=== PATIENT | male | born 1995 | race Caucasian/White ===

== ENCOUNTER 2017-04-16 11:45 | Inpatient (IN) | payer OTHER ==
[~2017-04-16] VITALS: Ht 170.2 cm; Wt 80.8 kg
[2017-04-16 14:20] LABS: MEAN CORPUSCULAR HEMOGLOBIN 31.4 pg (27.0-33.0); MEAN CORPUSCULAR HGB CONC 33.9 g/dl (32.0-36.5); MEAN CORPUSCULAR VOLUME 92.7 fl (80.0-96.0); RED CELL DISTRIBUTION WIDTH 12.5 % (11.5-14.5); WHITE BLOOD COUNT 6.4 K/mm3 (4.0-10.0)
[2017-04-16 14:54] LABS: METHADONE URINE NEGATIVE (NEGATIVE)
[2017-04-16 15:03] LABS: ALBUMIN 4.9 GM/DL (3.2-5.2); ALBUMIN/GLOBULIN RATIO 1.23 (1.00-1.93); ALKALINE PHOSPHATASE 65 U/L (45-117); ALT/SGPT 32 U/L (12-78); ANION GAP 7 MEQ/L (8-16); AST/SGOT 29 U/L (15-37); BILIRUBIN,DIRECT 0.2 MG/DL (0.0-0.2); BILIRUBIN,TOTAL 0.9 MG/DL (0.2-1.0); BLOOD UREA NITROGEN 11 MG/DL (7-18); CALCIUM LEVEL 9.5 MG/DL (8.5-10.1); CARBON DIOXIDE LEVEL 29 MEQ/L (21-32); CHLORIDE LEVEL 105 MEQ/L (98-107); CREATININE FOR GFR 0.92 MG/DL (0.70-1.30); GLUCOSE, FASTING 90 MG/DL (70-105); POTASSIUM SERUM 3.9 MEQ/L (3.5-5.1); SODIUM LEVEL 141 MEQ/L (136-145); TOTAL PROTEIN 8.9 GM/DL (6.4-8.2)
[2017-04-16] MEDS ORDERED: traZODone 50 MG TAB PO PRN (15:45)
[2017-04-16] MEDS ORDERED: OLANZapine 5 MG TAB PO PRN (15:45)
[2017-04-16] MEDS ORDERED: MAALOX 30 ML SUSP *UDC PO PRN (15:45)
[2017-04-16] MEDS ORDERED: MOM 30ML SUSPENSION UDC PO PRN (15:45)
[2017-04-16] MEDS: DIVALPROEX 250 MG TAB PO SCH ×2 (16:00→20:33)
[2017-04-16 17:30] VITALS: BP 132/69
[2017-04-16] MEDS: NICOTINE 21MG/24HR 1 EA TRANSDERMAL TD SCH (20:33)
[2017-04-17 07:31] VITALS: BP 115/60
[2017-04-17] MEDS: busPIRone 10 MG TAB PO SCH ×3 (09:00→20:48)
[2017-04-17] MEDS: NICOTINE 21MG/24HR 1 EA TRANSDERMAL TD SCH (09:14)
[2017-04-17] MEDS: DIVALPROEX 250 MG TAB PO SCH ×3 (09:14→20:48)
[2017-04-17] MEDS: ACETAMINOPHEN TAB 650MG DOSE (2X325MG) PO PRN (10:58)
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
--- NOTE | 2017-04-17 16:28 | HPE ---
DATE OF ADMISSION: 04/16/2017 HISTORY OF PRESENT ILLNESS: Please refer to psychiatric history and evaluation for further details on this admission. This examination and history is intended for medical issues, which may need treatment, followup, or consult on this 21-year-old male. PRIMARY CARE PROVIDER: [facility]. ALLERGIES: No known allergies. 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 EtOH (ethanol): None. Smokes one pack of cigarettes per day. Recreational drug use: None. PAST MEDICAL HISTORY: Bipolar disorder. PAST SURGICAL HISTORY: Appendectomy. MEDICATIONS: None. FAMILY HISTORY: Noncontributory. LABORATORY STUDIES: CBC normal. Electrolytes normal. BUN and creatinine 11 and 0.92. Toxicology screen was negative. A 10-systems review done was negative and unremarkable. PHYSICAL EXAMINATION: A 21-year-old cooperative male in no acute distress. Height 67 inches, weight 78.9 kg, body mass index (BMI) 27.2. Blood pressure 132/69, pulse 54, respirations 16, temperature 97.9. Patient is alert and oriented times three. Pupils equal and reactive to light. Extraocular movements (EOMs) intact. Corneae and sclerae clear. Conjunctivae are normal. No facial asymmetry. Pharynx, tongue, gums pink and moist. Tongue is midline. Neck is supple without lymphadenopathy. No thyromegaly. No goiter. Chest clear to auscultation without wheeze or retraction. Heart is regular without murmur or gallop. Abdomen benign. Bowel sounds positive. Genitourinary/rectal not done. Extremities show equal strength, full range of motion. No cyanosis, clubbing, or edema. Peripheral pulses equal and palpable bilaterally. Skin is warm and dry. IMPRESSION AND PLAN: Psychiatric plan per psychiatry. No acute medical issues.
--- NOTE | 2017-04-17 16:58 | REP ---
CT Head without contrast HISTORY: Concussion COMPARISON: None There is no intraparenchymal hemorrhage, acute infarct, mass or midline shift. The ventricular system is normal in appearance. There is no extra cerebral collection. There is no fracture. The visualized sinuses are clear. IMPRESSION: There is no intracranial lesion. Signed by Willis Bower MD 04/17/2017 04:43 P
[2017-04-17 18:00] VITALS: BP 147/81
[2017-04-17] MEDS: QUEtiapine FUMARATE 100 MG TAB PO SCH (20:48)
[2017-04-17] MEDS: PRAZOSIN 1 MG CAP PO SCH (20:48)
[2017-04-18 06:59] VITALS: BP 117/59
[2017-04-18] MEDS: busPIRone 10 MG TAB PO SCH ×3 (08:26→21:15)
[2017-04-18] MEDS: NICOTINE 21MG/24HR 1 EA TRANSDERMAL TD SCH (08:27)
[2017-04-18] MEDS: ACETAMINOPHEN TAB 650MG DOSE (2X325MG) PO PRN (14:36)
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
[2017-04-18 18:00] VITALS: BP 140/77
[2017-04-18] MEDS ORDERED: DIVALPROEX 500MG *ER* TAB PO SCH (21:00)
[2017-04-18] MEDS: QUEtiapine FUMARATE 100 MG TAB PO SCH (21:15)
[2017-04-18] MEDS: DIVALPROEX 250MG *ER* TAB PO SCH (21:15)
[2017-04-18] MEDS: PRAZOSIN 1 MG CAP PO SCH (21:15)
[2017-04-19 06:17] VITALS: BP 144/74
--- NOTE | 2017-04-19 07:56 | MHIPNPDOC ---
[facility] Progress Note Progress Note DATE OF SERVICE: 04/19/17 HISTORY:day 4 of admission for HI, Bipolar disorder VITAL SIGNS: See below. NEW TEST RESULTS: Head CT. CURRENT MEDICATIONS: See below. PAST SURGICAL HISTORY: Appendectomy. MENTAL STATUS EXAMINATION: General appearance: Patient is a 21-year old male, who is short in stature, light colored hair, fair complexion, fair eye contact, serious. Speech: clear and spontaneous Thought processes:linear, logical Thought content:appropriate Abstract reasoning and computation: good Description of associations: good. Description of abnormal or psychotic thoughts: not currently having suicidal thoughts, no homicidal thoughts, no psychotic symptoms. Judgment: good. Insight: fair. Orientation: oriented to place, time, person and surroundings. Recent and remote memory: intact. Attention span and concentration: varies, some days his concentration is very poor. ADHD by history. Fund of knowledge: Full Mood: "mellow" Affect: flat DIAGNOSES: 1. Bipolar I disorder, current episode depressed, severe, without psychosis 2. PTSD-chronic 3. Impulse control disorder. 4. ADHD by history r/o TBI ASSESSMENT:discussed results of head CT with pt. Recommend MRI as outpatient to continue with resolving issue of headaches. Pt may also need eye exam. This was explained to him and he was told to discuss with PCP after discharge. Pt reports sleeping "like a rock" and no nightmares. Still feels drowsy this a.m. but less so than yesterday. Appears to be adjusting to meds. Hygiene good. eating well. no side effects besides drowsiness reported. Pt observed in bed sleeping during therapeutic programming. He awoke at lunch time and felt much more awake and alert. MANAGEMENT PLAN: continue close observation,Will lower quetiapine to 50 mg to reduce sedation. enc group attendance, continue med adherence, will discuss scheduling MACIE soon. TIME SPENT: 25 minutes. Vital Signs Vital Signs Date Time Temp Pulse Resp B/P (MAP) Pulse Ox O2 Delivery O2 Flow Rate FiO2 04/19/17 06:17 97.4 86 16 144/74 (97) 04/18/17 18:00 Room Air 04/16/17 17:30 99 Current Medications Current Medications Acetaminophen (Tylenol Tab) 650 mg Q6HP PRN PO HEADACHE or DISCOMFORT Last administered on 04/18/17t 14:36; Start 04/16/17 at 15:45; Stop 05/16/17 at 15:44 Al Hydrox/Mg Hydrox/Simethicone (Mylanta) 30 ml Q4HP PRN PO HEARTBURN/ INDIGESTION; Start 04/16/17 at 15:45; Stop 05/16/17 at 15:44 Buspirone HCl (Buspar) 10 mg TID PO Last administered on 04/18/17 21:15; Start 04/17/17 at 09:00; Stop 05/17/17 at 08:59 Divalproex Sodium (Depakote Er) 500 mg QHS PO ; Start 04/18/17 at 21:00; Stop at 21:00; Status DC Divalproex Sodium (Depakote Er) 750 mg QHS PO Last administered on 04/18/17 21 :15; Start 04/18/17 at 21:00; Stop 05/18/17 at 20:59 Divalproex Sodium (Depakote) 250 mg TID PO Last administered on 04/17/17 20:48 ; Start 04/16/17 at 16:00; Stop 04/17/17 at 21:01; Status DC Home Med (Med Rec Complete!) ASDIRECTED XX ; Start 04/16/17 at 15:30; Stop at 15:30; Status DC Magnesium Hydroxide (Milk Of Magnesia) 30 ml DAILYPRN PRN PO CONSTIPATION; Start 04/16/17 at 15:45; Stop 05/16/17 at 15:44 Nicotine (Nicoderm Cq 21mg) 1 patch DAILY TD Last administered on 04/18/17 08: 27; Start 04/16/17 at 09:00; Stop 05/16/17 at 08:59 Olanzapine (ZyPREXA) 5 mg Q4HP PRN PO AGITATION Last administered on 04/18/17 14:36; Start 04/16/17 at 15:45; Stop 05/16/17 at 15:44 Prazosin HCl (Minipress) 1 mg QHS PO Last administered on 04/18/17 21:15; Start 04/17/17 at 21:00; Stop 05/17/17 at 20:59 Quetiapine Fumarate (SEROquel) 100 mg QHS PO Last administered on 04/18/17 21: 15; Start 04/17/17 at 21:00; Stop 05/17/17 at 20:59 Trazodone HCl (Desyrel) 50 mg QHSP PRN PO INSOMNIA; Start 04/16/17 at 15:45; Stop 05/16/17 at 15:44; Status Cancel Allergies Coded Allergies: No Known Allergies (Unverified , 04/16/17) Anni Vera Apr 19, 2017 07:56
[2017-04-19] MEDS: NICOTINE 21MG/24HR 1 EA TRANSDERMAL TD SCH (08:32)
[2017-04-19] MEDS: busPIRone 10 MG TAB PO SCH ×3 (08:32→21:39)
[2017-04-19 18:00] VITALS: BP 125/77
[2017-04-19] MEDS: DIVALPROEX 250MG *ER* TAB PO SCH (21:39)
[2017-04-19] MEDS: QUEtiapine FUMARATE 50 MG TAB PO SCH (21:39)
[2017-04-19] MEDS: PRAZOSIN 1 MG CAP PO SCH (21:40)
[2017-04-20 06:48] VITALS: BP 108/54
[2017-04-20] MEDS: NICOTINE 21MG/24HR 1 EA TRANSDERMAL TD SCH (08:57)
[2017-04-20] MEDS: busPIRone 10 MG TAB PO SCH ×3 (08:57→20:15)
--- NOTE | 2017-04-20 11:47 | MHIPNPDOC ---
[facility] Progress Note Progress Note DATE OF SERVICE: 04/20/17 HISTORY: day 5 of admission for Homicidal thoughts VITAL SIGNS: See below. NEW TEST RESULTS: na will order Depakote level for his weekend. CURRENT MEDICATIONS: See below. MENTAL STATUS EXAMINATION: Patient is a 21-year old male, who is short in stature, light colored hair, fair complexion, fair eye contact, serious. Speech: clear and spontaneous Thought processes:linear, logical Thought content:appropriate Abstract reasoning and computation: good Description of associations: good. Description of abnormal or psychotic thoughts: not currently having suicidal thoughts, no homicidal thoughts, no psychotic symptoms. Judgment: good. Insight: fair. Orientation: oriented to place, time, person and surroundings. Recent and remote memory: intact. Attention span and concentration: varies, some days his concentration is very poor. ADHD by history. Fund of knowledge: Full Mood: "mellow" Affect: flat, will smile on occasion. DIAGNOSES: 1. Bipolar I disorder, current episode depressed, severe, without psychosis 2. PTSD-chronic 3. Impulse control disorder. 4. ADHD by history r/o TBI ASSESSMENT:pt up and working on puzzle after breakfast. Attended some programming and went back to bed for a bit. States sedation is less today with lower dose of Seroquel. Reports he shared with his mother that he is taking Seroquel and she told him she had taken it and had to give herself time to adjust to the medication. pt encouraged to do the same. Hygiene is good. Social interactions are within social norms. No behavior concerns. Pt is requesting to delay MACIE until as long as possible as he does not want to go back to his unit. CDP will talk to him about the process of med boarding out and how long it takes. He keeps saying he [place] and he may think he can chapter out from here. MANAGEMENT PLAN: order Valproic acid level late in day for trough. continue observation, no med changes, Pt will need to have MRI as an outpatient to rule out TBI. TIME SPENT: 25 minutes. Vital Signs Vital Signs Date Time Temp Pulse Resp B/P (MAP) Pulse Ox O2 Delivery O2 Flow Rate FiO2 04/20/17 06:48 97.5 62 16 108/54 (72) Room Air 04/16/17 17:30 99 Current Medications Current Medications Acetaminophen (Tylenol Tab) 650 mg Q6HP PRN PO HEADACHE or DISCOMFORT Last administered on 04/18/17 14:36; Start 04/16/17 at 15:45; Stop 05/16/17 at 15:44 Al Hydrox/Mg Hydrox/Simethicone (Mylanta) 30 ml Q4HP PRN PO HEARTBURN/ INDIGESTION; Start 04/16/17 at 15:45; Stop 05/16/17 at 15:44 Buspirone HCl (Buspar) 10 mg TID PO Last administered on 04/20/17 08:57; Start 04/17/17 at 09:00; Stop 05/17/17 at 08:59 Divalproex Sodium (Depakote Er) 500 mg QHS PO ; Start 04/18/17 at 21:00; Stop at 21:00; Status DC Divalproex Sodium (Depakote Er) 750 mg QHS PO Last administered on 04/19/17 21 :39; Start 04/18/17 at 21:00; Stop 05/18/17 at 20:59 Divalproex Sodium (Depakote) 250 mg TID PO Last administered on 04/17/17 20:48 ; Start 04/16/17 at 16:00; Stop 04/17/17 at 21:01; Status DC Home Med (Med Rec Complete!) ASDIRECTED XX ; Start 04/16/17 at 15:30; Stop at 15:30; Status DC Magnesium Hydroxide (Milk Of Magnesia) 30 ml DAILYPRN PRN PO CONSTIPATION; Start 04/16/17 at 15:45; Stop 05/16/17 at 15:44 Nicotine (Nicoderm Cq 21mg) 1 patch DAILY TD Last administered on 04/20/17 08: 57; Start 04/16/17 at 09:00; Stop 05/16/17 at 08:59 Olanzapine (ZyPREXA) 5 mg Q4HP PRN PO AGITATION Last administered on 04/18/17 14:36; Start 04/16/17 at 15:45; Stop 05/16/17 at 15:44 Prazosin HCl (Minipress) 1 mg QHS PO Last administered on 04/19/17 21:40; Start 04/17/17 at 21:00; Stop 05/17/17 at 20:59 Quetiapine Fumarate (SEROquel) 50 mg QHS PO Last administered on 04/19/17 21: 39; Start 04/19/17 at 21:00; Stop 05/19/17 at 20:59 Quetiapine Fumarate (SEROquel) 100 mg QHS PO Last administered on 04/18/17t 21: 15; Start 04/17/17 at 21:00; Stop 04/19/17 at 13:50; Status DC Trazodone HCl (Desyrel) 50 mg QHSP PRN PO INSOMNIA; Start 04/16/17 at 15:45; Stop 05/16/17 at 15:44; Status Cancel Allergies Coded Allergies: No Known Allergies (Unverified , 04/16/17) Anin Vera Apr 20, 2017 11:47
[2017-04-20 18:00] VITALS: BP 135/63
[2017-04-20] MEDS: QUEtiapine FUMARATE 50 MG TAB PO SCH (20:15)
[2017-04-20] MEDS: DIVALPROEX 250MG *ER* TAB PO SCH (20:15)
[2017-04-20] MEDS: PRAZOSIN 1 MG CAP PO SCH (20:16)
[2017-04-21 06:00] VITALS: BP 137/76
[2017-04-21] MEDS: busPIRone 10 MG TAB PO SCH ×3 (08:28→21:06)
[2017-04-21] MEDS: NICOTINE 21MG/24HR 1 EA TRANSDERMAL TD SCH (08:28)
[2017-04-21] MEDS: ACETAMINOPHEN TAB 650MG DOSE (2X325MG) PO PRN (08:29)
[2017-04-21 18:00] VITALS: BP 141/69
[2017-04-21] MEDS: DIVALPROEX 250MG *ER* TAB PO SCH (21:06)
[2017-04-21] MEDS: QUEtiapine FUMARATE 50 MG TAB PO SCH (21:06)
[2017-04-21] MEDS: PRAZOSIN 1 MG CAP PO SCH (21:06)
[2017-04-22 06:39] VITALS: BP 102/51
[2017-04-22] MEDS: busPIRone 10 MG TAB PO SCH ×3 (08:30→21:01)
[2017-04-22] MEDS: NICOTINE 21MG/24HR 1 EA TRANSDERMAL TD SCH (08:30)
[2017-04-22 18:00] VITALS: BP 127/82
[2017-04-22] MEDS: PRAZOSIN 1 MG CAP PO SCH (21:01)
[2017-04-22] MEDS: QUEtiapine FUMARATE 50 MG TAB PO SCH (21:01)
[2017-04-22] MEDS: DIVALPROEX 250MG *ER* TAB PO SCH (21:01)
[2017-04-23 06:32] VITALS: BP 112/59
[2017-04-23] MEDS: NICOTINE 21MG/24HR 1 EA TRANSDERMAL TD SCH (08:53)
[2017-04-23] MEDS: busPIRone 10 MG TAB PO SCH ×3 (08:54→20:19)
[2017-04-23] MEDS: ACETAMINOPHEN TAB 650MG DOSE (2X325MG) PO PRN ×2 (12:04→20:20)
--- NOTE | 2017-04-23 13:27 | MHIPNPDOC ---
[facility] Progress Note Progress Note DATE OF SERVICE: 04/23/17 HISTORY: day8 of admission for HI. VITAL SIGNS: See below. NEW TEST RESULTS: Valproic acid level:76.8 CURRENT MEDICATIONS: See below. 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 Speech: Is clear. Language skills are intact. Thought processes including: goal directed. Thought content: appropriate. Abstract reasoning, and computation: good. Description of associations: good. Description of abnormal or psychotic thoughts: no psychotic symptoms, denies SI and HI. Judgment: fair Insight: good. Orientation: well oriented in all spheres. Recent and remote memory: intact. Attention span and concentration: good. Fund of knowledge: full. Mood:euthymic. Affect: constricted. DIAGNOSES: 1. Bipolar I disorder, current episode depressed, severe, without psychosis 2. PTSD-chronic 3. Impulse control disorder. 4. ADHD by history r/o TBI ASSESSMENT:pt is focused on his release from service. he has asked screen writer to write a letter in support of this. Will check with CDP a this request has never been made before. Pt is aware that he may be maintained in the for several more months, up to a year, before he can be chaptered out and actually leave his unit. Pt continues to deny side effects to medication. Tolerating them well. Camera Technician was to have increased Seroquel dose to 75 mg and did not do so until this evening. Sleep has been improving as has appetite. Pt is visible in milieu and is attending programming daily. MANAGEMENT PLAN: Seroquel prescribed at 75 mg at . [facility] meeting tomorrow 1p.m. with Discharge on Sunday per pts request. Pt will be monitored by [facility]. We will be recommending a PCP appt for Head MRI to investigate cause of VAZQUEZ/ Migraines. CT w/o Contrast did not disclose any information. Eye exam recommended too. TIME SPENT: 25 minutes. Vital Signs Vital Signs Date Time Temp Pulse Resp B/P (MAP) Pulse Ox O2 Delivery O2 Flow Rate FiO2 04/23/17 06:32 98.6 80 16 112/59 (76) Room Air Current Medications Current Medications Acetaminophen (Tylenol Tab) 650 mg Q6HP PRN PO HEADACHE or DISCOMFORT Last administered on 04/23/17 12:04; Start 04/16/17 at 15:45; Stop 05/16/17 at 15:44 Al Hydrox/Mg Hydrox/Simethicone (Mylanta) 30 ml Q4HP PRN PO HEARTBURN/ INDIGESTION; Start 04/16/17 at 15:45; Stop 05/16/17 at 15:44 Buspirone HCl (Buspar) 10 mg TID PO Last administered on 04/23/17 08:54; Start 04/17/17 at 09:00; Stop 05/17/17 at 08:59 Divalproex Sodium (Depakote Er) 500 mg QHS PO ; Start 04/18/17 at 21:00; Stop at 21:00; Status DC Divalproex Sodium (Depakote Er) 750 mg QHS PO Last administered on 04/22/17 21 :01; Start 04/18/17 at 21:00; Stop 05/18/17 at 20:59; Status Future hold Divalproex Sodium (Depakote) 250 mg TID PO Last administered on 04/17/17 20:48 ; Start 04/16/17 at 16:00; Stop 04/17/17 at 21:01; Status DC Home Med (Med Rec Complete!) ASDIRECTED XX ; Start 04/16/17 at 15:30; Stop at 15:30; Status DC Magnesium Hydroxide (Milk Of Magnesia) 30 ml DAILYPRN PRN PO CONSTIPATION; Start 04/16/17 at 15:45; Stop 05/16/17 at 15:44 Nicotine (Nicoderm Cq 21mg) 1 patch DAILY TD Last administered on 04/23/17 08: 53; Start 04/16/17 at 09:00; Stop 05/16/17 at 08:59 Olanzapine (ZyPREXA) 5 mg Q4HP PRN PO AGITATION Last administered on 04/18/17 14:36; Start 04/16/17 at 15:45; Stop 05/16/17 at 15:44 Prazosin HCl (Minipress) 1 mg QHS PO Last administered on 04/22/17 21:01; Start 04/17/17 at 21:00; Stop 05/17/17 at 20:59 Quetiapine Fumarate (SEROquel) 50 mg QHS PO Last administered on 04/22/17 21: 01; Start 04/19/17 at 21:00; Stop 04/23/17 at 09:05; Status DC Quetiapine Fumarate (SEROquel) 75 mg QHS PO ; Start 04/23/17 at 21:00; Stop at 20:59 Quetiapine Fumarate (SEROquel) 100 mg QHS PO Last administered on 04/18/17 21: 15; Start 04/17/17 at 21:00; Stop 04/19/17 at 13:50; Status DC Trazodone HCl (Desyrel) 50 mg QHSP PRN PO INSOMNIA; Start 04/16/17 at 15:45; Stop 05/16/17 at 15:44; Status Cancel Allergies Coded Allergies: No Known Allergies (Unverified , 04/16/17) Anni Vera Apr 23, 2017 13:27
[2017-04-23 18:00] VITALS: BP 125/58
[2017-04-23] MEDS: DIVALPROEX 250MG *ER* TAB PO SCH (20:17)
[2017-04-23] MEDS: QUEtiapine FUMARATE 25 MG TAB PO SCH (20:19)
[2017-04-23] MEDS: PRAZOSIN 1 MG CAP PO SCH (20:19)
[2017-04-24 06:56] VITALS: BP 126/59
[2017-04-24] MEDS: busPIRone 10 MG TAB PO SCH ×3 (09:02→20:36)
[2017-04-24] MEDS: NICOTINE 21MG/24HR 1 EA TRANSDERMAL TD SCH (09:03)
--- NOTE | 2017-04-24 15:30 | MHIPNPDOC ---
[facility] Progress Note Progress Note DATE OF SERVICE: 04/24/17 HISTORY: day 8 of admission for HI VITAL SIGNS: See below. NEW TEST RESULTS: na CURRENT MEDICATIONS: See below. 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 Speech: Is spontaneous Language skills are good. Thought processes including: goal directed. Thought content: appropriate. Abstract reasoning, and computation: good. Description of associations: good. Description of abnormal or psychotic thoughts: not psychotic, no longer verbalizing thoughts to harm others. Denies SI. Judgment: fair Insight: limited. Orientation: well oriented in all spheres. Recent and remote memory:intact Attention span and concentration: varies. Fund of knowledge: Full Mood: depressed but he says it is improving. Affect: congruent, flat, blunted. DIAGNOSES: 1. Bipolar I disorder, current episode depressed, severe, without psychosis 2. PTSD-chronic 3. Impulse control disorder. 4. ADHD by history r/o TBI ASSESSMENT:pt attended [facility] this afternoon. It was decided he would remain here until Sunday of next week. [facility] is closed Sunday and Sunday so there would not be any professional support available to him should he return to the [facility]. In light of his feelings about his unit it is not recommended he return until further supports are in place. Pt is adhering to medication regime. He appears to be improving. He is sleeping much better than he ever has. Unfortunately for him, service feels as punishing and demeaning as life with grandmother and prompts anxiety and paranoia in him to the extent he has flashbacks of his childhood. He is disappointed by this as he had hoped for a career. Pt has been telling others that his "parents" are coming to visit. He has been in touch with his mother but his father was never in his life. Mom has been coping with bipolar disorder herself. It has been several years since they have seen one another. He bears watching during & after the visit. He may have some unrealistic expectations. He may be terribly disappointed. Hygiene good. Appetite intact. Head aches continue to come and go. MANAGEMENT PLAN: sleep improved at Seroquel 75 mg versus 50 mg. pt not as sedated during the daytime hours either. pt attending programs hit or miss. please encourage him to attend regularly. Not observed engaging with male peers much this week. Lots of other service members here so I find this a little odd. Continue close observation , monitor sleep. Pt needs to follow up with [facility] after discharge if PCP will approve - r/o migraines, cause of headaches, h/o numerous concussions. TIME SPENT: 25 minutes. Vital Signs Vital Signs Date Time Temp Pulse Resp B/P (MAP) Pulse Ox O2 Delivery O2 Flow Rate FiO2 04/24/17 06:56 98.1 68 16 126/59 (81) Room Air Current Medications Current Medications Acetaminophen (Tylenol Tab) 650 mg Q6HP PRN PO HEADACHE or DISCOMFORT Last administered on 04/23/17 20:20; Start 04/16/17 at 15:45; Stop 05/16/17 at 15:44 Al Hydrox/Mg Hydrox/Simethicone (Mylanta) 30 ml Q4HP PRN PO HEARTBURN/ INDIGESTION; Start 04/16/17 at 15:45; Stop 05/16/17 at 15:44 Buspirone HCl (Buspar) 10 mg TID PO Last administered on 04/24/17 09:02; Start 04/17/17 at 09:00; Stop 05/17/17 at 08:59 Divalproex Sodium (Depakote Er) 500 mg QHS PO ; Start 04/18/17 at 21:00; Stop at 21:00; Status DC Divalproex Sodium (Depakote Er) 750 mg QHS PO Last administered on 04/23/17 20 :17; Start 04/18/17 at 21:00; Stop 05/18/17 at 20:59; Status Future hold Divalproex Sodium (Depakote) 250 mg TID PO Last administered on 04/17/17 20:48 ; Start 04/16/17 at 16:00; Stop 04/17/17 at 21:01; Status DC Home Med (Med Rec Complete!) ASDIRECTED XX ; Start 04/16/17 at 15:30; Stop at 15:30; Status DC Magnesium Hydroxide (Milk Of Magnesia) 30 ml DAILYPRN PRN PO CONSTIPATION; Start 04/16/17 at 15:45; Stop 05/16/17 at 15:44 Nicotine (Nicoderm Cq 21mg) 1 patch DAILY TD Last administered on 04/24/17 09: 03; Start 04/16/17 at 09:00; Stop 05/16/17 at 08:59 Olanzapine (ZyPREXA) 5 mg Q4HP PRN PO AGITATION Last administered on 04/18/17 14:36; Start 04/16/17 at 15:45; Stop 05/16/17 at 15:44 Prazosin HCl (Minipress) 1 mg QHS PO Last administered on 04/23/17 20:19; Start 04/17/17 at 21:00; Stop 05/17/17 at 20:59 Quetiapine Fumarate (SEROquel) 50 mg QHS PO Last administered on 04/22/17 21: 01; Start 04/19/17 at 21:00; Stop 04/23/17 at 09:05; Status DC Quetiapine Fumarate (SEROquel) 75 mg QHS PO Last administered on 04/23/17 20: 19; Start 04/23/17 at 21:00; Stop 05/23/17 at 20:59 Quetiapine Fumarate (SEROquel) 100 mg QHS PO Last administered on 04/18/17 21: 15; Start 04/17/17 at 21:00; Stop 04/19/17 at 13:50; Status DC Trazodone HCl (Desyrel) 50 mg QHSP PRN PO INSOMNIA; Start 04/16/17 at 15:45; Stop 05/16/17 at 15:44; Status Cancel Allergies Coded Allergies: No Known Allergies (Unverified , 04/16/17) Anni Vera Apr 24, 2017 15:30
[2017-04-24 18:08] VITALS: BP 124/90
[2017-04-24] MEDS: PRAZOSIN 1 MG CAP PO SCH (20:36)
[2017-04-24] MEDS: DIVALPROEX 250MG *ER* TAB PO SCH (20:36)
[2017-04-24] MEDS: QUEtiapine FUMARATE 25 MG TAB PO SCH (20:36)
[2017-04-24] MEDS: ACETAMINOPHEN TAB 650MG DOSE (2X325MG) PO PRN (20:37)
[2017-04-25 06:34] VITALS: BP 139/63
[2017-04-25] MEDS: busPIRone 10 MG TAB PO SCH ×3 (08:45→22:04)
[2017-04-25] MEDS: NICOTINE 21MG/24HR 1 EA TRANSDERMAL TD SCH (08:45)
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
[2017-04-25 18:00] VITALS: BP 156/83
[2017-04-25] MEDS: PRAZOSIN 1 MG CAP PO SCH (22:03)
[2017-04-25] MEDS: DIVALPROEX 250MG *ER* TAB PO SCH (22:03)
[2017-04-25] MEDS: QUEtiapine FUMARATE 25 MG TAB PO SCH (22:04)
[2017-04-26 06:40] VITALS: BP 135/60
[2017-04-26] MEDS: NICOTINE 21MG/24HR 1 EA TRANSDERMAL TD SCH (08:28)
[2017-04-26] MEDS: busPIRone 10 MG TAB PO SCH ×3 (08:28→21:51)
[2017-04-26 18:00] VITALS: BP 152/69
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
[2017-04-26] MEDS: QUEtiapine FUMARATE 25 MG TAB PO SCH (21:51)
[2017-04-26] MEDS: DIVALPROEX 250MG *ER* TAB PO SCH (21:51)
[2017-04-26] MEDS: PRAZOSIN 1 MG CAP PO SCH (21:52)
[2017-04-27 06:57] VITALS: BP 120/58
[2017-04-27] MEDS: busPIRone 10 MG TAB PO SCH ×3 (08:42→22:14)
[2017-04-27] MEDS: NICOTINE 21MG/24HR 1 EA TRANSDERMAL TD SCH (08:43)
[2017-04-27 18:00] VITALS: BP 138/63
--- NOTE | 2017-04-27 18:58 | MHIPNPDOC ---
[facility] Progress Note Progress Note DATE OF SERVICE: 04/27/17 HISTORY: Patient was seen and evaluated. He reported that he has been feeling better but remains on the edge with repeated parts of being angry and aggressive and damage to property in the unit. He reports that he does not want to get involved in that kind of activity and that's why he remains to himself, even after repeated encouragement to participate in the unit activities. No agitation or aggressive episodes reported. Compliant with the medications and denies side effects. Eating and sleeping fine VITAL SIGNS: See below. CURRENT MEDICATIONS: See below. 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 Speech: Is spontaneous Language skills are good. Thought processes including: goal directed. Thought content: appropriate. Abstract reasoning, and computation: good. Description of associations: good. Description of abnormal or psychotic thoughts: not psychotic, no longer verbalizing thoughts to harm others. Denies SI. Judgment: fair Insight: limited. Orientation: well oriented in all spheres. Recent and remote memory:intact Attention span and concentration: varies. Fund of knowledge: Full Mood: depressed but he says it is improving. Affect: congruent, flat, blunted. DIAGNOSES: 1. Bipolar I disorder, current episode depressed, severe, without psychosis 2. PTSD-chronic 3. Impulse control disorder. 4. ADHD by history r/o TBI ASSESSMENT: Patient improving but remains on the edge MANAGEMENT PLAN: continue observation, no changes to meds. enc pt to attend group & milieu treatment and interact socially. TIME SPENT: 15 minutes. Vital Signs Vital Signs Date Time Temp Pulse Resp B/P (MAP) Pulse Ox O2 Delivery O2 Flow Rate FiO2 04/27/17 06:57 97.7 69 14 120/58 (78) 04/24/17 18:08 Room Air Current Medications Current Medications Acetaminophen (Tylenol Tab) 650 mg Q6HP PRN PO HEADACHE or DISCOMFORT Last administered on 04/24/17t 20:37; Start 04/16/17 at 15:45; Stop 05/16/17 at 15:44 Al Hydrox/Mg Hydrox/Simethicone (Mylanta) 30 ml Q4HP PRN PO HEARTBURN/ INDIGESTION; Start 04/16/17 at 15:45; Stop 05/16/17 at 15:44 Buspirone HCl (Buspar) 10 mg TID PO Last administered on 04/27/17 16:30; Start 04/17/17 at 09:00; Stop 05/17/17 at 08:59 Divalproex Sodium (Depakote Er) 500 mg QHS PO ; Start 04/18/17 at 21:00; Stop at 21:00; Status DC Divalproex Sodium (Depakote Er) 750 mg QHS PO Last administered on 04/26/17 21 :51; Start 04/18/17 at 21:00; Stop 05/18/17 at 20:59; Status Future hold Divalproex Sodium (Depakote) 250 mg TID PO Last administered on 04/17/17 20:48 ; Start 04/16/17 at 16:00; Stop 04/17/17 at 21:01; Status DC Home Med (Med Rec Complete!) ASDIRECTED XX ; Start 04/16/17 at 15:30; Stop at 15:30; Status DC Magnesium Hydroxide (Milk Of Magnesia) 30 ml DAILYPRN PRN PO CONSTIPATION; Start 04/16/17 at 15:45; Stop 05/16/17 at 15:44 Nicotine (Nicoderm Cq 21mg) 1 patch DAILY TD Last administered on 04/27/17 08: 43; Start 04/16/17 at 09:00; Stop 05/16/17 at 08:59 Olanzapine (ZyPREXA) 5 mg Q4HP PRN PO AGITATION Last administered on 04/18/17 14:36; Start 04/16/17 at 15:45; Stop 05/16/17 at 15:44 Prazosin HCl (Minipress) 1 mg QHS PO Last administered on 04/26/17 21:52; Start 04/17/17 at 21:00; Stop 05/17/17 at 20:59 Quetiapine Fumarate (SEROquel) 50 mg QHS PO Last administered on 04/22/17 21: 01; Start 04/19/17 at 21:00; Stop 04/23/17 at 09:05; Status DC Quetiapine Fumarate (SEROquel) 75 mg QHS PO Last administered on 04/26/17 21: 51; Start 04/23/17 at 21:00; Stop 05/23/17 at 20:59 Quetiapine Fumarate (SEROquel) 100 mg QHS PO Last administered on 04/18/17t 21: 15; Start 04/17/17 at 21:00; Stop 04/19/17 at 13:50; Status DC Trazodone HCl (Desyrel) 50 mg QHSP PRN PO INSOMNIA; Start 04/16/17 at 15:45; Stop 05/16/17 at 15:44; Status Cancel Allergies Coded Allergies: No Known Allergies (Unverified , 04/16/17) VAN NORIEGA MD Apr 27, 2017 18:58
[2017-04-27] MEDS: DIVALPROEX 250MG *ER* TAB PO SCH (22:14)
[2017-04-27] MEDS: QUEtiapine FUMARATE 25 MG TAB PO SCH (22:14)
[2017-04-27] MEDS: PRAZOSIN 1 MG CAP PO SCH (22:14)
[2017-04-28 06:58] VITALS: BP 142/65
[2017-04-28] MEDS: busPIRone 10 MG TAB PO SCH ×3 (08:29→21:32)
[2017-04-28] MEDS: NICOTINE 21MG/24HR 1 EA TRANSDERMAL TD SCH (08:30)
[2017-04-28 18:00] VITALS: BP 132/86
[2017-04-28] MEDS: DIVALPROEX 250MG *ER* TAB PO SCH (21:32)
[2017-04-28] MEDS: QUEtiapine FUMARATE 25 MG TAB PO SCH (21:32)
[2017-04-28] MEDS: PRAZOSIN 1 MG CAP PO SCH (21:32)
[2017-04-28] MEDS: ACETAMINOPHEN TAB 650MG DOSE (2X325MG) PO PRN (21:33)
[2017-04-29 06:27] VITALS: BP 130/58
[2017-04-29] MEDS: NICOTINE 21MG/24HR 1 EA TRANSDERMAL TD SCH (07:53)
[2017-04-29] MEDS: busPIRone 10 MG TAB PO SCH ×3 (07:53→22:33)
[2017-04-29 18:00] VITALS: BP 136/70
[2017-04-29] MEDS: QUEtiapine FUMARATE 25 MG TAB PO SCH (22:34)
[2017-04-29] MEDS: DIVALPROEX 250MG *ER* TAB PO SCH (22:34)
[2017-04-29] MEDS: PRAZOSIN 1 MG CAP PO SCH (22:34)
[2017-04-30 06:00] VITALS: BP 107/53
[2017-04-30] MEDS: NICOTINE 21MG/24HR 1 EA TRANSDERMAL TD SCH (08:20)
[2017-04-30] MEDS: busPIRone 10 MG TAB PO SCH ×3 (08:20→21:54)
[2017-04-30 18:00] VITALS: BP 151/76
[2017-04-30] MEDS: DIVALPROEX 250MG *ER* TAB PO SCH (21:53)
[2017-04-30 21:54] VITALS: BP 142/75
[2017-04-30] MEDS: PRAZOSIN 1 MG CAP PO SCH (21:54)
[2017-04-30] MEDS: QUEtiapine FUMARATE 25 MG TAB PO SCH (21:54)
[2017-05-01 06:27] VITALS: BP 122/56
[2017-05-01] MEDS ORDERED: MINI1CAP PO (09:01)
[2017-05-01] MEDS ORDERED: DEPA250T2 PO (09:01)
[2017-05-01] MEDS ORDERED: BUSP10TA PO (09:01)
[2017-05-01] MEDS ORDERED: QUET1TAB7 PO (09:01)
[2017-05-01] MEDS: busPIRone 10 MG TAB PO SCH (09:10)
[2017-05-01] MEDS: NICOTINE 21MG/24HR 1 EA TRANSDERMAL TD SCH (09:11)
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
== END 2017-05-01 13:00 | disposition home or self-care (01) | DRG 885 ==
LOC: M ED 11:45 → M ED INP 15:45 → M PSY 17:17
PROVIDERS: ADMIT Psychiatry & Neurology Psychiatry; ATTEND Psychiatry & Neurology Psychiatry
DX: F31.4 Bipolar disorder, current episode depressed, severe, without psychotic features (principal); F43.12 Post-traumatic stress disorder, chronic; F17.210 Nicotine dependence, cigarettes, uncomplicated; F63.9 Impulse disorder, unspecified; Z81.3 Family history of other psychoactive substance abuse and dependence; Z81.8 Family history of other mental and behavioral disorders; Z62.810 Personal history of physical and sexual abuse in childhood

== ENCOUNTER 2017-05-03 13:22 | Inpatient (IN) | payer OTHER ==
[~2017-05-03] VITALS: Ht 170.2 cm; Wt 81.8 kg
[~2017-05-03 13:22] MED LIST: BUSP10TA PO; DEPA250T2 PO; MINI1CAP PO; QUET1TAB7 PO
[2017-05-03 14:49] LABS: MEAN CORPUSCULAR HEMOGLOBIN 31.2 pg (27.0-33.0); MEAN CORPUSCULAR HGB CONC 33.1 g/dl (32.0-36.5); RED CELL DISTRIBUTION WIDTH 12.3 % (11.5-14.5); WHITE BLOOD COUNT 6.2 K/mm3 (4.0-10.0)
[2017-05-03 15:20] LABS: ALBUMIN 4.5 GM/DL (3.2-5.2); ALBUMIN/GLOBULIN RATIO 1.13 (1.00-1.93); ALKALINE PHOSPHATASE 75 U/L (45-117); ALT/SGPT 35 U/L (12-78); ANION GAP 8 MEQ/L (8-16); AST/SGOT 29 U/L (15-37); BILIRUBIN,DIRECT 0.1 MG/DL (0.0-0.2); BILIRUBIN,TOTAL 0.4 MG/DL (0.2-1.0); BLOOD UREA NITROGEN 13 MG/DL (7-18); CARBON DIOXIDE LEVEL 29 MEQ/L (21-32); CHLORIDE LEVEL 105 MEQ/L (98-107); CREATININE FOR GFR 0.91 MG/DL (0.70-1.30); GLUCOSE, FASTING 91 MG/DL (70-105); POTASSIUM SERUM 4.1 MEQ/L (3.5-5.1); SODIUM LEVEL 142 MEQ/L (136-145); TOTAL PROTEIN 8.5 GM/DL (6.4-8.2)
[2017-05-03] MEDS ORDERED: MOM 30ML SUSPENSION UDC PO PRN (15:30)
[2017-05-03] MEDS ORDERED: MAALOX 30 ML SUSP *UDC PO PRN (15:30)
[2017-05-03 15:34] LABS: METHADONE URINE NEGATIVE (NEGATIVE)
[2017-05-03] MEDS ORDERED: BUSP10TA PO (16:25)
[2017-05-03] MEDS ORDERED: TYLE325T5 PO (16:25)
[2017-05-03] MEDS ORDERED: DIVA250T7 PO (16:25)
[2017-05-03] MEDS ORDERED: PRAZ1CAP PO (16:25)
[2017-05-03] MEDS ORDERED: SERO1TAB3 PO (16:25)
[2017-05-03 16:53] VITALS: BP 138/80
[2017-05-03] MEDS: NICOTINE 21MG/24HR 1 EA TRANSDERMAL TD SCH (21:00)
[2017-05-03] MEDS: QUEtiapine FUMARATE 25 MG TAB PO SCH (21:39)
[2017-05-03] MEDS: busPIRone 10 MG TAB PO SCH (21:39)
[2017-05-03] MEDS: PRAZOSIN 1 MG CAP PO SCH (21:39)
[2017-05-03] MEDS: DIVALPROEX 250MG *ER* TAB PO SCH (21:40)
[2017-05-04 06:40] VITALS: BP 124/58
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
[2017-05-04] MEDS: busPIRone 10 MG TAB PO SCH ×3 (09:12→22:33)
--- NOTE | 2017-05-04 09:31 | HPEPDOC ---
Medical History and Physical Date of Admission May 03, 2017 at 15:24 History and Physical PCP: [facility] ATTENDING: Dr. Bradford Viera HPI: 21 yo M admitted to [facility] for bipolar disorder, being medically examined today. No acute medical complaints today. Patient states he takes Depakote for mood. Denies any fevers, chills, weakness, fatigue, VAZQUEZ, CP, SOB, cough, palpitations, abdominal pain, N/V/D or changes in bowel or bladder habits. 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 ROS: As noted in HPI, otherwise 11pt ROS of systems reviewed and unremarkable. PE: GEN: 21yoM, appears stated age. Well-nourished, well developed. No acute distress. Alert and oriented x 3. Reluctant to provide history, avoids eye contact, flat affect. HEENT: Normocephalic, atraumatic. Pupils are equal, round, and reactive to light. Extraocular movements are intact. No nystagmus appreciated. Sclera are nonicteric. Conjunctiva without injection. Nose midline. Nasal turbinates without bogginess. EACs both patent BL. TMs both visualized and nugent with good cone of light, no bulging or erythema. No facial asymmetry. Moist mucous membranes. Dentition fair. Pharynx pink and moist, no cobblestoning. Neck supple , trachea midline. No lymphadenopathy or thyromegaly appreciated. CHEST: Regular rate and rhythm, +S1, +S2 LUNGS: Clear to auscultation bilaterally. No wheezes, rales, or rhonchi. Breathing appears symmetric and easy. Patient is speaking in full sentences. No accessory muscle use. ABD: Round, soft, non-tender, non-distended. +Bowel sounds throughout. No rebound or guarding. No costovertebral angle tenderness. EXT: Pulses 2+ bilaterally dorsalis pedis and radial. No lower extremity edema appreciated. SKIN: [place], dry, warm. Capillary refill <2sec. No rashes. NEURO: Alert and oriented x 3. Cranial nerves III-XII are intact. No focal deficits appreciated. EKG: Pending. CT had 04/17/17 There is no intracranial lesion. A&P: 21 yo M admitted to [facility] for bipolar disorder 1. Psych. Plan per Psychiatry. Obtain baseline EKG to assure the safety of psychiatric medications as they can prolong the QT interval. 2. Nicotine dependence. Patch available. 3. 4. Follow up with PCP on discharge. 5. Staff member Say present throughout exam. Vital Signs Vital Signs Date Time Temp Pulse Resp B/P (MAP) Pulse Ox O2 Delivery O2 Flow Rate FiO2 05/04/17 06:40 98.5 55 16 124/58 (80) 05/03/17 16:53 99 Room Air Laboratory Data Labs 24H Laboratory Tests 2 05/03/17 14:31: Anion Gap 8, Calcium Level 9.0, Aspartate Amino Transf (AST/SGOT) 29, Alanine Aminotransferase (ALT/SGPT) 35, Alkaline Phosphatase 75, Total Bilirubin 0.4, Direct Bilirubin 0.1, Total Protein 8.5H, Albumin 4.5, Albumin/Globulin Ratio 1.13, Thyroid Stimulating Hormone (TSH) 1.360, Salicylates Level < 1.7L, Urine Amphetamines Screen NEGATIVE, Urine Benzodiazepines Screen NEGATIVE, Urine Opiates Screen NEGATIVE, Urine Methadone Screen NEGATIVE, Acetaminophen Level 8.3L, Urine Barbiturates Screen NEGATIVE, Valproic Acid (Depakene) Level 44.2L, Urine Phencyclidine Screen NEGATIVE, Urine Cocaine Metabolite Screen NEGATIVE, Urine Cannabinoids Screen NEGATIVE, Ethyl Alcohol Level < 0.003 CBC/BMP Laboratory Tests 05/03/17 14:31 Red Blood Count 5.15, Mean Corpuscular Volume 94.0, Mean Corpuscular Hemoglobin 31.2, Mean Corpuscular Hemoglobin Concent 33.1, Red Cell Distribution Width 12.3 Home Medications Scheduled Buspirone HCl (Buspirone HCl) 10 Mg Tab, 10 MG PO TID Divalproex Sodium (Divalproex Sodium ER) 250 Mg Tab, 750 MG PO QHS Prazosin Hcl (Prazosin HCl) 1 Mg Cap, 1 MG PO QHS Quetiapine Fumerate (Seroquel) 25 Mg Tab, 75 MG PO QHS Scheduled PRN Acetaminophen (Tylenol) 325 Mg Tab, 650 MG PO QID PRN for PAIN Allergies Coded Allergies: No Known Allergies (Unverified , 04/16/17) Merle Matta May 04, 2017 09:31
--- NOTE | 2017-05-04 16:55 | ECGEPIP ---
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
[2017-05-04 18:00] VITALS: BP 130/64
[2017-05-04] MEDS: PRAZOSIN 1 MG CAP PO SCH (22:33)
[2017-05-04] MEDS: QUEtiapine FUMARATE 25 MG TAB PO SCH (22:33)
[2017-05-04] MEDS: DIVALPROEX 250MG *ER* TAB PO SCH (22:34)
[2017-05-04] MEDS: NICOTINE 21MG/24HR 1 EA TRANSDERMAL TD SCH (22:34)
[2017-05-05 06:35] VITALS: BP 129/62
[2017-05-05] MEDS: busPIRone 10 MG TAB PO SCH ×3 (08:29→23:13)
[2017-05-05] MEDS: ACETAMINOPHEN TAB 650MG DOSE (2X325MG) PO PRN (12:32)
[2017-05-05] MEDS ORDERED: OLANZapine 5 MG TAB PO PRN (13:30)
[2017-05-05 18:00] VITALS: BP 124/58
--- NOTE | 2017-05-05 21:30 | IPN ---
DATE: 05/05/2017 SUBJECTIVE: The patient states, "I'm feeling really anxious." He denies any new stressors. He states that he still did not sleep well because he was having nightmares last night. MENTAL STATUS EXAMINATION: He is alert and oriented times three. Eye contact fair. Psychomotor activity is decreased. Verbally spontaneous. There is no formal thought disorder noted. The patient's mood is anxious. Affect is restricted but appropriate to his mood. He is not psychotic, suicidal or homicidal. Concentration is fair. Memory intact. Insight and judgment fair. DIAGNOSIS: Bipolar disorder type 1, recurrent, depressed without psychotic features. TREATMENT PLAN: At this point, we will monitor the patient for continued stabilization of his mood. We will give him Zyprexa 10 mg as needed to see if it helps with his anxiety. GILD
[2017-05-05] MEDS: QUEtiapine FUMARATE 25 MG TAB PO SCH (23:13)
[2017-05-05] MEDS: DIVALPROEX 250MG *ER* TAB PO SCH (23:13)
[2017-05-05] MEDS: PRAZOSIN 1 MG CAP PO SCH (23:14)
[2017-05-05] MEDS: NICOTINE 21MG/24HR 1 EA TRANSDERMAL TD SCH (23:14)
[2017-05-06 06:38] VITALS: BP 134/50
[2017-05-06] MEDS: busPIRone 10 MG TAB PO SCH ×3 (08:31→21:38)
[2017-05-06] MEDS: ACETAMINOPHEN TAB 650MG DOSE (2X325MG) PO PRN (13:11)
--- NOTE | 2017-05-06 17:30 | MHIPN ---
DATE: 05/06/2017 The patient today states, "I'm doing good." By this, he means that his anxiety is better. However, he tells me that he is still depressed. His mood is 6/10 where the closer to 10/10 is the most depressed. He is still having some hopelessness. MENTAL STATUS EXAMINATION: This patient is alert and oriented times three. Eye contact is fair. Psychomotor activity is decreased. He is verbally spontaneous. There is no formal thought disorder noted. Mood is depressed. Affect, full range and appropriate. He is not psychotic, suicidal or homicidal. Concentration is fair. Memory intact. Insight and judgment is poor. DIAGNOSIS: Bipolar disorder, type 1, recurrent, depressed without psychotic symptoms. TREATMENT PLAN: At this point, we will continue to monitor the patient for continued elevation and stabilization of his mood and for continued resolution of suicidal ideations. We will continue to titrate his medications as indicated.
[2017-05-06 18:05] VITALS: BP 123/60
[2017-05-06] MEDS: QUEtiapine FUMARATE 25 MG TAB PO SCH (21:38)
[2017-05-06] MEDS: NICOTINE 21MG/24HR 1 EA TRANSDERMAL TD SCH (21:38)
[2017-05-06] MEDS: DIVALPROEX 250MG *ER* TAB PO SCH (21:39)
[2017-05-06] MEDS: PRAZOSIN 1 MG CAP PO SCH (21:39)
[2017-05-07 06:44] VITALS: BP 122/59
[2017-05-07] MEDS: busPIRone 10 MG TAB PO SCH ×3 (08:29→21:39)
--- NOTE | 2017-05-07 12:04 | MHIPNPDOC ---
[facility] Progress Note Progress Note DATE OF SERVICE: 05/07/17 HISTORY: day 5 of admission for SI with HI. VITAL SIGNS: See below. NEW TEST RESULTS: na CURRENT MEDICATIONS: See below. MENTAL STATUS EXAMINATION: General appearance: Patient is a 21-year old male, who is short, fair haired, light skin and eyes, wearing hospital attire, poor eye contact. Speech: spontaneous Thought processes: goal directed Thought content: appropriate. Abstract reasoning and computation: good. Description of associations: good. Description of abnormal or psychotic thoughts: pt is homicidal towards authority , suicidal to prevent himself from harming anyone. Denies auditory disturbances. Judgment: good. Insight: fair Orientation: well oriented in all spheres. Recent and remote memory: intact Attention span and concentration: good. Fund of knowledge: full Mood: depressed Affect: congruent DIAGNOSES: 1. Bipolar I disorder, recurrent, current episode depressed, without psychotic features 2. PTSD-chronic ASSESSMENT: we have been informed the will send pt for long-term care in [place] for bipolar disorder. pt was informed of this today. We will await word of the transfer. In the mean time pt instructed to continue group therapy and to be out of room as much as possible. He is currently in bed reading during group time. Prazosin increased over the weekend for nightmares. MANAGEMENT PLAN: continue close obs, continue depakote, prazosin at 2 mg. pt c/ o low mood. will initiate tx with citalopram 10 mg. risks and benefits discussed with the patient. TIME SPENT: 15 minutes. Vital Signs Vital Signs Date Time Temp Pulse Resp B/P (MAP) Pulse Ox O2 Delivery O2 Flow Rate FiO2 05/07/17 06:44 97.3 65 16 122/59 (80) Room Air 05/03/17 16:53 99 Laboratory Data 24H Labs Laboratory Tests 2 05/07/17 10:56: Current Medications Current Medications Acetaminophen (Tylenol Tab) 650 mg Q6HP PRN PO HEADACHE or DISCOMFORT Last administered on 05/06/17t 13:11; Start 05/03/17 at 15:30; Stop 06/02/17 at 15:29 Al Hydrox/Mg Hydrox/Simethicone (Mylanta) 30 ml Q4HP PRN PO HEARTBURN/ INDIGESTION; Start 05/03/17 at 15:30; Stop 06/02/17 at 15:29 Buspirone HCl (Buspar) 10 mg TID PO Last administered on 05/07/17 08:29; Start 05/03/17 at 21:00; Stop 06/02/17 at 20:59 Divalproex Sodium (Depakote Er) 750 mg QHS PO Last administered on 05/06/17 21 :39; Start 05/03/17 at 21:00; Stop 06/02/17 at 20:59 Home Med (Med Rec Complete!) ASDIRECTED XX ; Start 05/03/17 at 16:30; Stop at 16:30; Status DC Magnesium Hydroxide (Milk Of Magnesia) 30 ml DAILYPRN PRN PO CONSTIPATION; Start 05/03/17 at 15:30; Stop 06/02/17 at 15:29 Nicotine (Nicoderm Cq 21mg) 1 patch QHS TD Last administered on 05/06/17 21:38 ; Start 05/03/17 at 21:00; Stop 06/02/17 at 20:59 Olanzapine (ZyPREXA) 5 mg Q4HP PRN PO ANXIETY/AGITATION Last administered on 13:29; Start 05/05/17 at 13:30; Stop 06/04/17 at 13:29 Prazosin HCl (Minipress) 1 mg QHS PO Last administered on 05/05/17 23:14; Start 05/03/17 at 21:00; Stop 05/06/17 at 13:31; Status DC Prazosin HCl (Minipress) 2 mg QHS PO Last administered on 05/06/17 21:39; Start 05/06/17 at 21:00; Stop 06/05/17 at 20:59 Quetiapine Fumarate (SEROquel) 75 mg QHS PO Last administered on 05/06/17 21: 38; Start 05/03/17 at 21:00; Stop 06/02/17 at 20:59 Allergies Coded Allergies: No Known Allergies (Unverified , 04/16/17) Anni Vera May 07, 2017 12:04
[2017-05-07] MEDS: CitaloPRAM (CeleXA) 10 MG TABLET PO SCH (12:17)
[2017-05-07 18:00] VITALS: BP 142/65
[2017-05-07] MEDS: QUEtiapine FUMARATE 25 MG TAB PO SCH (21:39)
[2017-05-07] MEDS: PRAZOSIN 1 MG CAP PO SCH (21:39)
[2017-05-07] MEDS: NICOTINE 21MG/24HR 1 EA TRANSDERMAL TD SCH (21:40)
[2017-05-07] MEDS: DIVALPROEX 250MG *ER* TAB PO SCH (21:40)
[2017-05-08 06:33] VITALS: BP 135/60
[2017-05-08] MEDS: busPIRone 10 MG TAB PO SCH ×3 (08:52→21:51)
[2017-05-08] MEDS: CitaloPRAM (CeleXA) 10 MG TABLET PO SCH (08:52)
--- NOTE | 2017-05-08 10:49 | MHIPNPDOC ---
[facility] Progress Note Progress Note DATE OF SERVICE: 05/08/17 HISTORY: day 6 of admission for SI/HI. VITAL SIGNS: See below. NEW TEST RESULTS: depakote level:0.81, Plts low at 149, will repeat. CURRENT MEDICATIONS: See below. MENTAL STATUS EXAMINATION: General appearance: Patient is a 21-year old male, who is short, fair haired, light skin and eyes, wearing hospital attire, poor eye contact. Speech: spontaneous Thought processes: goal directed Thought content: appropriate. Abstract reasoning and computation: good. Description of associations: good. Description of abnormal or psychotic thoughts: pt is homicidal towards authority , suicidal to prevent himself from harming anyone. Denies auditory disturbances. Judgment: good. Insight: fair Orientation: well oriented in all spheres. Recent and remote memory: intact Attention span and concentration: good. 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 Bipolar I disorder, recurrent, current episode depressed, without psychotic features 2. PTSD-chronic ASSESSMENT:pt participated in treatment planning this morning, met with team to review goals and objectives. the staff will be encouraging him more regularly to attend programming as he has done very little since admitted. He prefers to lay in bed and read. This is not treatment so he needs to be encouraged routinely to socialize and be present where his peers are present. Pt took first dose of Celexa this morning. He slept well last night and denied nightmares. Stated, "it took a minute" to fall asleep so if this becomes routine quetiapine may need to be increased to 100 mg. Pt eats at mealtime and takes care of hygiene well. He speaks with his mother regularly on the phone and states she has been supportive "so far". Given his background his doubts are well founded. MANAGEMENT PLAN: pt is awaiting nursing home treatment at [facility]. We are awaiting word from [employer] that his transfer arrangements have been made. Once we hear, he will be escorted by personal to the treatment center. He is to continue meds here as ordered and we will continue to monitor his safety, sleep, VS and psychiatric needs. Repeat Plt level to be ordered today. [email or web address] has informed us that they will attend MACIE meeting tomorrow at noon. they will take pt to [email or web address] so he can pack. they will return him to unit. He requires a 4 hour pass. He is to be escorted on 05/10/17 at appro 0400 hrs to the airport to begin his treatment in [place]. TIME SPENT: 25 minutes. Vital Signs Vital Signs Date Time Temp Pulse Resp B/P (MAP) Pulse Ox O2 Delivery O2 Flow Rate FiO2 05/08/17 06:33 97.8 52 16 135/60 (85) Room Air 05/03/17 16:53 99 Laboratory Data 24H Labs Laboratory Tests 2 05/07/17 10:56: Valproic Acid (Depakene) Level 81.7 Current Medications Current Medications Acetaminophen (Tylenol Tab) 650 mg Q6HP PRN PO HEADACHE or DISCOMFORT Last administered on 05/06/17 13:11; Start 05/03/17 at 15:30; Stop 06/02/17 at 15:29 Al Hydrox/Mg Hydrox/Simethicone (Mylanta) 30 ml Q4HP PRN PO HEARTBURN/ INDIGESTION; Start 05/03/17 at 15:30; Stop 06/02/17 at 15:29 Buspirone HCl (Buspar) 10 mg TID PO Last administered on 05/08/17 08:52; Start 05/03/17 at 21:00; Stop 06/02/17 at 20:59 Citalopram Hydrobromide (CeleXA) 10 mg DAILY PO Last administered on 05/08/17 08:52; Start 05/07/17 at 09:00; Stop 06/06/17 at 08:59 Divalproex Sodium (Depakote Er) 750 mg QHS PO Last administered on 05/07/17 21 :40; Start 05/03/17 at 21:00; Stop 06/02/17 at 20:59 Home Med (Med Rec Complete!) ASDIRECTED XX ; Start 05/03/17 at 16:30; Stop at 16:30; Status DC Magnesium Hydroxide (Milk Of Magnesia) 30 ml DAILYPRN PRN PO CONSTIPATION; Start 05/03/17 at 15:30; Stop 06/02/17 at 15:29 Nicotine (Nicoderm Cq 21mg) 1 patch QHS TD Last administered on 05/07/17 21:40 ; Start 05/03/17 at 21:00; Stop 06/02/17 at 20:59 Olanzapine (ZyPREXA) 5 mg Q4HP PRN PO ANXIETY/AGITATION Last administered on 13:29; Start 05/05/17 at 13:30; Stop 06/04/17 at 13:29 Prazosin HCl (Minipress) 1 mg QHS PO Last administered on 05/05/17 23:14; Start 05/03/17 at 21:00; Stop 05/06/17 at 13:31; Status DC Prazosin HCl (Minipress) 2 mg QHS PO Last administered on 05/07/17 21:39; Start 05/06/17 at 21:00; Stop 06/05/17 at 20:59 Quetiapine Fumarate (SEROquel) 75 mg QHS PO Last administered on 05/07/17 21: 39; Start 05/03/17 at 21:00; Stop 06/02/17 at 20:59 Allergies Coded Allergies: No Known Allergies (Unverified , 04/16/17) Anni Vera May 08, 2017 10:49
[2017-05-08 18:00] VITALS: BP 137/86
[2017-05-08] MEDS: DIVALPROEX 250MG *ER* TAB PO SCH (21:52)
[2017-05-08] MEDS: PRAZOSIN 1 MG CAP PO SCH (21:52)
[2017-05-08] MEDS: QUEtiapine FUMARATE 25 MG TAB PO SCH (21:52)
[2017-05-08] MEDS: NICOTINE 21MG/24HR 1 EA TRANSDERMAL TD SCH (21:53)
[2017-05-09 06:28] VITALS: BP 127/65
[2017-05-09] MEDS: CitaloPRAM (CeleXA) 10 MG TABLET PO SCH (08:07)
[2017-05-09] MEDS: busPIRone 10 MG TAB PO SCH ×3 (08:07→21:04)
--- NOTE | 2017-05-09 14:37 | MHIPNPDOC ---
[facility] Progress Note Progress Note DATE OF SERVICE: 05/09/17 HISTORY: day 7 of admission for SI related to HI VITAL SIGNS: See below. NEW TEST RESULTS: Platelet level has dropped lower to 148, likely related to depakote. Would not raise depakote as an outpatient until or unless this resolves. CURRENT MEDICATIONS: See below. MENTAL STATUS EXAMINATION: ASSESSMENT: pt up for groups after prompting. attended group and MACIE meeting at 12:45. Left for pass with escort to pack for transfer to long-term care facility in [place]. 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 It is apparent that his personality and the patients are not a good mix. 1st Sgts. body language and tone/volume of voice could be interpreted as aggressive by Will. He may do better if he were assigned elsewhere. Will is hopeful for a chance to start over with the after his tx at [facility]. He wants to do it for his uncle. His uncle has been encouraging Will to finish up 2 years with the [employer]. In the right environment he may be able to do so. Decorating Equipment Setter spoke with Will about having a conversation about this with his Capt when he returns from [facility]. 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 Capt indicated that the [employer] does plan to pursue a Behavioral Health med board. Pt may have a future in [place] with his uncle. He hopes to visit his estranged Mother in [place] as well. MANAGEMENT PLAN: continue meds and close observation. pt is due back from pass by 6 p.m. due to late departure (no clothes, no conversion to Vol status as ordered 05/08 to be done today). TIME SPENT: 25 minutes. Vital Signs Vital Signs Date Time Temp Pulse Resp B/P (MAP) Pulse Ox O2 Delivery O2 Flow Rate FiO2 05/09/17 06:28 97.1 74 16 127/65 (85) Room Air 05/03/17 16:53 99 Current Medications Current Medications Acetaminophen (Tylenol Tab) 650 mg Q6HP PRN PO HEADACHE or DISCOMFORT Last administered on 05/06/17t 13:11; Start 05/03/17 at 15:30; Stop 06/02/17 at 15:29 Al Hydrox/Mg Hydrox/Simethicone (Mylanta) 30 ml Q4HP PRN PO HEARTBURN/ INDIGESTION; Start 05/03/17 at 15:30; Stop 06/02/17 at 15:29 Buspirone HCl (Buspar) 10 mg TID PO Last administered on 05/09/17 08:07; Start 05/03/17 at 21:00; Stop 06/02/17 at 20:59 Citalopram Hydrobromide (CeleXA) 10 mg DAILY PO Last administered on 05/09/17 08:07; Start 05/07/17 at 09:00; Stop 06/06/17 at 08:59 Divalproex Sodium (Depakote Er) 750 mg QHS PO Last administered on 05/08/17 21 :52; Start 05/03/17 at 21:00; Stop 06/02/17 at 20:59 Home Med (Med Rec Complete!) ASDIRECTED XX ; Start 05/03/17 at 16:30; Stop at 16:30; Status DC Magnesium Hydroxide (Milk Of Magnesia) 30 ml DAILYPRN PRN PO CONSTIPATION; Start 05/03/17 at 15:30; Stop 06/02/17 at 15:29 Nicotine (Nicoderm Cq 21mg) 1 patch QHS TD Last administered on 05/08/17 21:53 ; Start 05/03/17 at 21:00; Stop 06/02/17 at 20:59 Olanzapine (ZyPREXA) 5 mg Q4HP PRN PO ANXIETY/AGITATION Last administered on 13:29; Start 05/05/17 at 13:30; Stop 06/04/17 at 13:29 Prazosin HCl (Minipress) 1 mg QHS PO Last administered on 05/05/17 23:14; Start 05/03/17 at 21:00; Stop 05/06/17 at 13:31; Status DC Prazosin HCl (Minipress) 2 mg QHS PO Last administered on 05/08/17 21:52; Start 05/06/17 at 21:00; Stop 06/05/17 at 20:59 Quetiapine Fumarate (SEROquel) 75 mg QHS PO Last administered on 05/08/17 21: 52; Start 05/03/17 at 21:00; Stop 06/02/17 at 20:59 Allergies Coded Allergies: No Known Allergies (Unverified , 04/16/17) Anni Vera May 09, 2017 14:37
[2017-05-09 18:00] VITALS: BP 147/81
[2017-05-09] MEDS: NICOTINE 21MG/24HR 1 EA TRANSDERMAL TD SCH (21:00)
[2017-05-09] MEDS: DIVALPROEX 250MG *ER* TAB PO SCH (21:03)
[2017-05-09 21:04] VITALS: BP 145/79
[2017-05-09] MEDS: QUEtiapine FUMARATE 25 MG TAB PO SCH (21:04)
[2017-05-09] MEDS: PRAZOSIN 1 MG CAP PO SCH (21:04)
[2017-05-10] MEDS: CitaloPRAM (CeleXA) 10 MG TABLET PO SCH (03:46)
[2017-05-10] MEDS: busPIRone 10 MG TAB PO SCH (03:46)
[2017-05-10] MEDS ORDERED: ALPRAZolam 0.5 MG TAB PO ONE (04:00)
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
== END 2017-05-10 04:00 | DRG 885 ==
LOC: M ED 13:22 → M ED INP 15:24 → M PSY 16:52
PROVIDERS: ADMIT Psychiatry & Neurology Psychiatry; ATTEND Psychiatry & Neurology Psychiatry
DX: F31.30 Bipolar disorder, current episode depressed, mild or moderate severity, unspecified (principal); F41.9 Anxiety disorder, unspecified; F43.12 Post-traumatic stress disorder, chronic; F17.210 Nicotine dependence, cigarettes, uncomplicated; Z62.810 Personal history of physical and sexual abuse in childhood; Z62.811 Personal history of psychological abuse in childhood; Z81.8 Family history of other mental and behavioral disorders; Z79.899 Other long term (current) drug therapy; Z91.5 Personal history of self-harm; Z56.4 Discord with boss and workmates